=== PATIENT | male | born 1955 | race African-American/Black ===

== ENCOUNTER 2018-05-17 16:48 | Inpatient (IN) ==
[2018-05-17 17:42] LABS: Apearance,Urine CLEAR (Clear); Bilirubin,Urine Negative (Negative); Blood, Urine Negative (Negative); Glucose,Urine (UA) Negative (Negative); Ketones,Urine Negative (Negative); Nitrite,Urine Negative (Negative); Protein,Urine Negative; Squamous Epithelial Cell,Urine Occasional /HPF (0-10); Urine Color Straw (Yellow); Urine Specific Gravity 1.008 (1.001-1.035); Urine Urobilinogen < 2.0 EU/DL (0.2-1.0); WBC,Urine 2 /HPF (0-6)
[2018-05-17 17:46] LABS: Basophils % 0.2 % (0.0-0.8); Eosinophils # 0.1 10*3/uL (0.0-0.87); Eosinophils % 0.6 % (0.00-10.9); Hematocrit 38.6 VOL% (42.0-52.0); Hemoglobin 12.6 GM/DL (14.0-18.0); Immature Granulocytes % 0.3 %; Immature Granulocytes Absolute 0.04 #; Lymphocytes # 2.3 10*3/uL (1.4-4.0); Lymphocytes % 17.2 % (21.2-54.2); Mean Corpuscular HGB Conc 32.6 GM/DL (32-36); Mean Corpuscular Hemoglobin 26 PG (27-34); Mean Corpuscular Volume 78.6 FL (87-102); Monocytes # 0.7 10*3/uL (0.11-0.8); Monocytes % 5.5 % (1.7-12.7); Neutrophils # 10.2 10*3/uL (1.4-7.4); Neutrophils % 76.2 % (38.7-73.9); Platelet Count 255 T/CUMM (130-400); Red Blood Count 4.91 MC/CUMM (3.8-5.5); Red Cell Distribution Width 15.9 % (9.3-17.3); White Blood Count 13.4 T/CUMM (4-12)
[2018-05-17 18:06] LABS: Alanine Aminotransferase 19 U/L (16-61); Albumin 4.7 G/DL (3.4-5.0); Alkaline Phosphatase 75 U/L (45-117); Amylase 81 U/L (25-115); Aspartate Amino Transferase 12 U/L (0-37); Bilirubin,Total < 0.39 MG/DL (0.2-1.0); Blood Urea Nitrogen 53 MG/DL (7-18); Calcium 9.3 MG/DL (8.5-10.1); Glucose 103 MG/DL (74-106); Osmolality,Calculated 290.5 MOS/KG (273-304); Potassium 4.8 MMOL/L (3.5-5.1); Sodium 139 MMOL/L (136-145); Total Protein 9.6 G/DL (6.4-8.3); Troponin I < 0.015 NG/ML (0.00-0.045)
[2018-05-17] MEDS ORDERED: SODIUM CHLORIDE 0.9% 1,000 ML IV STA (18:34)
[2018-05-17] MEDS ORDERED: ONDANSETRON 4 MG/2 ML VIAL IV STA ×2 (18:35→21:15)
[2018-05-17] MEDS ORDERED: MORPHINE 4 MG/1 ML VIAL IV STA ×2 (21:15→22:28)
[2018-05-17] MEDS ORDERED: MORPHINE 4 MG/1 ML VIAL ONE (21:16)
[2018-05-17] MEDS ORDERED: hydrALAZINE 20 MG/1 ML VIAL IV STA ×2 (21:32→22:31)
[2018-05-17] MEDS ORDERED: hydrALAZINE 20 MG/1 ML VIAL ONE ×2 (21:38→22:11)
[2018-05-17] MEDS ORDERED: hydrALAZINE 20 MG/1 ML VIAL IV PRN (23:14)
[2018-05-17] MEDS ORDERED: GLUCAGON 1 MG VIAL IM PRN (23:14)
[2018-05-17] MEDS ORDERED: ACETAMINOPHEN 325 MG TABLET PO PRN (23:14)
[2018-05-17] MEDS ORDERED: DEXTROSE 50% 25 GM/50 ML SYRINGE IV PRN (23:14)
[2018-05-17] MEDS ORDERED: LISINOPRIL 10 MG TABLET PO STA (23:14)
[2018-05-17] MEDS ORDERED: HYDROmorphone 2 MG/1 ML VIAL IV PRN (23:14)
[2018-05-17] MEDS ORDERED: INFLUENZA VIRUS VACCINE 0.5 ML SYRINGE IM ONE (23:40)
[2018-05-17] MEDS: SODIUM CHLORIDE 0.45% 1,000 ML IV SCH (23:45)
[2018-05-17] MEDS: INSULIN REGULAR 100 UNIT/ML SUBCUT SCH (23:54)
[2018-05-18 05:37] LABS: Calcium 8.9 MG/DL (8.5-10.1); Osmolality,Calculated 296.4 MOS/KG (273-304); Potassium 4.5 MMOL/L (3.5-5.1)
[2018-05-18] MEDS: metFORMIN 500 MG TABLET PO SCH ×2 (08:12→16:23)
[2018-05-18] MEDS: INSULIN REGULAR 100 UNIT/ML SUBCUT SCH ×4 (08:12→21:00)
[2018-05-18] MEDS: PANTOPRAZOLE 40 MG TABLET PO SCH (08:12)
[2018-05-18] MEDS: DOCUSATE SODIUM 100 MG CAPSULE PO SCH ×2 (08:12→21:00)
[2018-05-18] MEDS: SODIUM CHLORIDE 0.45% 1,000 ML IV SCH ×3 (08:16→23:46)
[2018-05-18] MEDS: ONDANSETRON 4 MG/2 ML VIAL IV PRN (20:58)
[2018-05-18] MEDS: MAGNESIUM HYDROXIDE SUSP 30 ML UDCUP PO PRN (21:00)
[2018-05-19] MEDS: INSULIN REGULAR 100 UNIT/ML SUBCUT SCH ×4 (07:56→22:22)
[2018-05-19] MEDS ORDERED: LACTULOSE 20 GM/30 ML UDCUP PO PRN (08:10)
[2018-05-19] MEDS: SODIUM CHLORIDE 0.45% 1,000 ML IV SCH ×2 (09:06→16:26)
[2018-05-19] MEDS: PANTOPRAZOLE 40 MG TABLET PO SCH (09:07)
[2018-05-19] MEDS: HYOSCYAMINE 0.125 MG TABLET PO SCH ×3 (09:07→22:22)
[2018-05-19] MEDS: DOCUSATE SODIUM 100 MG CAPSULE PO SCH ×2 (09:07→22:22)
[2018-05-19] MEDS: metFORMIN 500 MG TABLET PO SCH ×2 (09:07→16:15)
[2018-05-19] MEDS: ONDANSETRON 4 MG/2 ML VIAL IV PRN (12:55)
[2018-05-19] MEDS: DUTASTERIDE 0.5 MG CAPSULE PO SCH (12:55)
[2018-05-19] MEDS ORDERED: DIBUCAINE 1% OINT 28 GM TUBE TOP PRN (13:14)
[2018-05-19] MEDS: sitaGLIPtin 100 MG TABLET PO SCH (16:26)
[2018-05-19] MEDS: TAMSULOSIN 0.4 MG CAPSULE PO SCH (22:22)
[2018-05-20] MEDS: SODIUM CHLORIDE 0.45% 1,000 ML IV SCH ×3 (00:26→20:30)
[2018-05-20 05:16] LABS: Basophils # 0.1 10*3/uL (0.0-0.2); Basophils % 0.3 % (0.0-0.8); Eosinophils # 0.4 10*3/uL (0.0-0.87); Eosinophils % 2.5 % (0.00-10.9); Hematocrit 38.8 VOL% (42.0-52.0); Hemoglobin 12.7 GM/DL (14.0-18.0); Immature Granulocytes % 0.6 %; Lymphocytes # 2.4 10*3/uL (1.4-4.0); Lymphocytes % 14.1 % (21.2-54.2); Mean Corpuscular HGB Conc 32.7 GM/DL (32-36); Mean Corpuscular Hemoglobin 25 PG (27-34); Mean Corpuscular Volume 77.6 FL (87-102); Mean Platelet Volume 11.6 FL (9.6-12.0); Monocytes # 1.4 10*3/uL (0.11-0.8); Monocytes % 8.2 % (1.7-12.7); Neutrophils # 12.7 10*3/uL (1.4-7.4); Neutrophils % 74.3 % (38.7-73.9); Platelet Count 248 T/CUMM (130-400); Red Cell Distribution Width 15.7 % (9.3-17.3)
[2018-05-20 05:26] LABS: Calcium 8.6 MG/DL (8.5-10.1); Potassium 4.7 MMOL/L (3.5-5.1)
[2018-05-20] MEDS: INSULIN REGULAR 100 UNIT/ML SUBCUT SCH ×4 (08:35→21:13)
[2018-05-20] MEDS: TAMSULOSIN 0.4 MG CAPSULE PO SCH ×2 (08:51→20:01)
[2018-05-20] MEDS: HYOSCYAMINE 0.125 MG TABLET PO SCH ×3 (08:51→20:01)
[2018-05-20] MEDS: DOCUSATE SODIUM 100 MG CAPSULE PO SCH ×2 (08:51→20:01)
[2018-05-20] MEDS: PANTOPRAZOLE 40 MG TABLET PO SCH (08:51)
[2018-05-20] MEDS: MAGNESIUM CHLORIDE 64 MG TABLET PO SCH (08:51)
[2018-05-20] MEDS: LEVOFLOXACIN INJ 500 MG in PREMIX 1 EACH IV SCH (08:52)
[2018-05-20] MEDS: DUTASTERIDE 0.5 MG CAPSULE PO SCH (08:52)
[2018-05-20] MEDS ORDERED: MAGNESIUM SULF RIDER 2 GM in PREMIX 1 EACH IV ONE (10:00)
[2018-05-20] MEDS: sitaGLIPtin 100 MG TABLET PO SCH (17:32)
[2018-05-21] MEDS: SODIUM CHLORIDE 0.45% 1,000 ML IV SCH ×2 (05:42→15:34)
[2018-05-21 08:00] LABS: Basophils % 0.3 % (0.0-0.8); Eosinophils # 0.5 10*3/uL (0.0-0.87); Eosinophils % 3.3 % (0.00-10.9); Hematocrit 38.3 VOL% (42.0-52.0); Hemoglobin 12.6 GM/DL (14.0-18.0); Immature Granulocytes % 0.7 %; Lymphocytes # 0.8 10*3/uL (1.4-4.0); Lymphocytes % 5.5 % (21.2-54.2); Mean Corpuscular HGB Conc 32.9 GM/DL (32-36); Mean Corpuscular Hemoglobin 26 PG (27-34); Mean Platelet Volume 11.1 FL (9.6-12.0); Monocytes # 1.3 10*3/uL (0.11-0.8); Monocytes % 9.1 % (1.7-12.7); Neutrophils # 11.4 10*3/uL (1.4-7.4); Neutrophils % 81.1 % (38.7-73.9); Platelet Count 221 T/CUMM (130-400); Red Blood Count 4.91 MC/CUMM (3.8-5.5); Red Cell Distribution Width 15.3 % (9.3-17.3); White Blood Count 14.1 T/CUMM (4-12)
[2018-05-21 08:20] LABS: Albumin 3.3 G/DL (3.4-5.0); Bilirubin,Total 0.5 MG/DL (0.2-1.0); Calcium 8.6 MG/DL (8.5-10.1); Osmolality,Calculated 284.7 MOS/KG (273-304); Potassium 4.8 MMOL/L (3.5-5.1); Total Protein 7.8 G/DL (6.4-8.3)
[2018-05-21] MEDS: INSULIN REGULAR 100 UNIT/ML SUBCUT SCH ×3 (09:26→17:59)
[2018-05-21] MEDS ORDERED: LIDOCAINE 2% TOP JELLY 20 ML VIAL INTRAURETH ONE (09:43)
[2018-05-21] MEDS: PANTOPRAZOLE 40 MG TABLET PO SCH (10:13)
[2018-05-21] MEDS: DOCUSATE SODIUM 100 MG CAPSULE PO SCH ×2 (10:13→20:32)
[2018-05-21] MEDS: MAGNESIUM CHLORIDE 64 MG TABLET PO SCH (10:13)
[2018-05-21] MEDS: DUTASTERIDE 0.5 MG CAPSULE PO SCH (10:14)
[2018-05-21] MEDS: TAMSULOSIN 0.4 MG CAPSULE PO SCH ×2 (10:14→20:31)
[2018-05-21] MEDS: HYOSCYAMINE 0.125 MG TABLET PO SCH ×3 (10:14→20:32)
[2018-05-21] MEDS: MAGNESIUM HYDROXIDE SUSP 30 ML UDCUP PO PRN (13:33)
[2018-05-21] MEDS: sitaGLIPtin 100 MG TABLET PO SCH (18:31)
[2018-05-22] MEDS: SODIUM CHLORIDE 0.45% 1,000 ML IV SCH ×3 (00:06→17:06)
[2018-05-22] MEDS: INSULIN REGULAR 100 UNIT/ML SUBCUT SCH ×5 (00:17→21:15)
[2018-05-22 05:57] LABS: Basophils % 0.4 % (0.0-0.8); Eosinophils # 0.4 10*3/uL (0.0-0.87); Eosinophils % 4.1 % (0.00-10.9); Hematocrit 36.6 VOL% (42.0-52.0); Immature Granulocytes % 0.9 %; Immature Granulocytes Absolute 0.09 #; Lymphocytes # 1.3 10*3/uL (1.4-4.0); Lymphocytes % 12.8 % (21.2-54.2); Mean Corpuscular HGB Conc 32.8 GM/DL (32-36); Mean Corpuscular Hemoglobin 25 PG (27-34); Mean Corpuscular Volume 77.1 FL (87-102); Mean Platelet Volume 11.2 FL (9.6-12.0); Monocytes # 1.8 10*3/uL (0.11-0.8); Monocytes % 17.7 % (1.7-12.7); Neutrophils # 6.5 10*3/uL (1.4-7.4); Neutrophils % 64.1 % (38.7-73.9); Platelet Count 219 T/CUMM (130-400); Red Blood Count 4.75 MC/CUMM (3.8-5.5); Red Cell Distribution Width 15.2 % (9.3-17.3); White Blood Count 10.2 T/CUMM (4-12)
[2018-05-22 06:16] LABS: Calcium 8.5 MG/DL (8.5-10.1); Potassium 4.5 MMOL/L (3.5-5.1)
[2018-05-22 06:22] LABS: Anisocytosis Slight; Band Neutrophils 2 % (0-10); Eosinophils 7 % (0-10); Lymphocytes 7 % (20-55); Platelet Estimate Normal; Segmented Neutrophils 73 % (50-85); Total Cells Counted 100
[2018-05-22] MEDS: LEVOFLOXACIN INJ 500 MG in PREMIX 1 EACH IV SCH (08:53)
[2018-05-22] MEDS: MULTIVITAMIN (CENTRUM) TABLET PO SCH (08:54)
[2018-05-22] MEDS: DOCUSATE SODIUM 100 MG CAPSULE PO SCH ×2 (08:54→22:13)
[2018-05-22] MEDS: PANTOPRAZOLE 40 MG TABLET PO SCH (08:54)
[2018-05-22] MEDS: DUTASTERIDE 0.5 MG CAPSULE PO SCH (08:54)
[2018-05-22] MEDS: MAGNESIUM CHLORIDE 64 MG TABLET PO SCH (08:54)
[2018-05-22] MEDS: TAMSULOSIN 0.4 MG CAPSULE PO SCH ×2 (08:54→22:13)
[2018-05-22] MEDS: CYANOCOBALAMIN 100 MCG TABLET PO SCH (08:54)
[2018-05-22] MEDS: HYOSCYAMINE 0.125 MG TABLET PO SCH ×3 (08:54→22:13)
[2018-05-22] MEDS: sitaGLIPtin 100 MG TABLET PO SCH (17:01)
[2018-05-22] MEDS ORDERED: ENOXAPARIN 40 MG/0.4 ML SYRINGE SUBCUT SCH (21:00)
[2018-05-23] MEDS: SODIUM CHLORIDE 0.45% 1,000 ML IV SCH (01:34)
[2018-05-23] MEDS: MULTIVITAMIN (CENTRUM) TABLET PO SCH (08:56)
[2018-05-23] MEDS: HYOSCYAMINE 0.125 MG TABLET PO SCH (08:56)
[2018-05-23] MEDS: INSULIN REGULAR 100 UNIT/ML SUBCUT SCH ×2 (08:56→13:44)
[2018-05-23] MEDS: CYANOCOBALAMIN 100 MCG TABLET PO SCH (08:56)
[2018-05-23] MEDS: DUTASTERIDE 0.5 MG CAPSULE PO SCH (08:56)
[2018-05-23] MEDS: TAMSULOSIN 0.4 MG CAPSULE PO SCH (08:56)
[2018-05-23] MEDS: PANTOPRAZOLE 40 MG TABLET PO SCH (08:56)
[2018-05-23] MEDS: MAGNESIUM CHLORIDE 64 MG TABLET PO SCH (08:56)
[2018-05-23] MEDS: DOCUSATE SODIUM 100 MG CAPSULE PO SCH (08:56)
[2018-05-23 12:20] VITALS: BP 107/84
== END 2018-05-23 13:20 | disposition home health service (06) | DRG 683 ==
LOC: N.ED 16:48 → N.EDINP 16:48 → N.2E 23:14
PROVIDERS: ADMIT Family Medicine; ATTEND Family Medicine